=== PATIENT | male | born 2005 | race Caucasian/White ===

== ENCOUNTER 2023-04-04 20:48 | Emergency (ER) | payer OTHER, SELFPAY ==
[2023-04-04] VITALS (19 sets, daily range): BP systolic 112–132; BP diastolic 54–90; PULSE 79–119; RESP 10–18; TEMP 36.4; O2SAT 94–100
[2023-04-04 22:14] LABS: Basophils Percent Auto 0.2 % (0.2-1.2); Eosinophils Absolute Auto 0.1 K/mm3 (0-0.3); Eosinophils Percent Auto 0.5 % (0-4.4); Hemoglobin 14.3 g/dL (14.0-18.0); Immature Granulocyte Absolute 0.02 K/mm3 (0.00-0.031); Immature Granulocyte Percent A 0.2 % (0-0.5); Lymphocytes Absolute Auto 0.76 K/mm3 (0.9-3.2); Lymphocytes Percent Auto 6.8 % (18.3-44.2); Mean Corpuscular Hemoglobin 30.8 pg (26-34); Mean Corpuscular Volume 90.3 fl (80-100); Mean Platelet Volume 10.4 fl (7.4-10.4); Monocytes Absolute Auto 0.4 K/mm3 (0.1-0.6); Monocytes Percent Auto 3.3 % (2.6-8.5); Platelet Count Result 172 k/mm3 (150-375); Red Blood Count 4.65 M/mm3 (4.6-6.20); Red Cell Distribution Width 11.7 % (11.5-14.5); White Blood Count 11.2 K/mm3 (4.5-10.0)
[2023-04-04 22:24] LABS: Alanine Aminotransferase 18 U/L (6-50); Albumin Level 4.7 g/dL (3.7-5.6); Alkaline Phosphatase 97 U/L (58-237); Anion Gap 10 mmol/L (8-16); Aspartate Amino Transferase 30 U/L (17-59); Bilirubin,Total 0.8 mg/dL (0.2-1.3); Blood Urea Nitrogen 15 mg/dL (8-21); Calcium 9.1 mg/dL (8.9-10.7); Carbon Dioxide 29 mmol/L (22-30); Chloride 98 mmol/L (98-107); Estimated CRCL calculation 94 ml/min; Estimated Glomerular Filt Rate > 60; Glucose 102 mg/dL (65-110); Potassium 4.2 mmol/L (3.4-5.0); Sodium 137 mmol/L (134-143)
[2023-04-05] VITALS (23 sets, daily range): BP systolic 107–122; BP diastolic 59–79; PULSE 62–99; O2SAT 98–100
--- NOTE | 2023-04-05 00:18 | ECG_ITS ---
Measurements Intervals [place] Rate: 70 P: 75 [place]: 134 QRS: 80 QRSD: 104 T: 62 QT: 363 QTc: 392 Interpretive Statements SINUS RHYTHM POSSIBLE RIGHT VENTRICULAR CONDUCTION DELAY [RSR (QR) IN V1/V2] EARLY REPOLARIZATION [ST ELEVATION WITH NORMALLY INFLECTED T WAVE] NO PREVIOUS ECG AVAILABLE FOR COMPARISON Electronically Signed On 04-05-2023 13:21:31 CDT by Chuyita Posey M.D.
[2023-04-05] MEDS: SODIUM CHLORIDE 0.9% IV 1,000 ML 999 ML IV CONT ×2 (00:28)
[2023-04-05 00:48] LABS: Appearance Urine Clear (Clear); Bacteria Urine None Seen /hpf; Bilirubin Urine Negative (Negative); Blood Urine Negative (Negative); Color Urine Yellow (Yellow); Glucose Urine UA Negative (Negative); Ketones Urine Negative (Negative); Leukocyte Esterase Ur Trace LEU/UL (Negative); Nitrate Urine Negative (Negative); Non Pathogenic Casts 0-2; Protein Urine Negative (Negative); RBC Urine 0-2 /hpf (0-2); Specific Grav Ur 1.007 (1.001-1.035); Squamous Epithelial Cell Urine None seen /hpf (Few); Urobilinogen Urine 0.2 mg/dL (<2.0); WBC Urine 0-5 /hpf; pH Urine 6.5 (5.0-9.0)
--- NOTE | 2023-04-05 00:53 | ED.SYNCOPE ---
HPI - Syncope General Chief Complaint: Syncope <CABRERA Rivero Last Filed: 04/05/23 03:19> Stated Complaint: syncopal episode during soccer game <CABRERA Rivero Last Filed: 04/05/23 03:19> Time Seen by Provider: 04/04/23 22:47 <CABRERA Rivero Last Filed: 04/05/23 03:19> Source: patient <CABRERA Rivero Last Filed: 04/05/23 03:19> Mode of arrival: ambulatory <CABRERA Rivero Last Filed: 04/05/23 03:19> Limitations: no limitations <CABRERA Rivero Last Filed: 04/05/23 03:19> History of Present Illness HPI narrative: Patient is a 17-year-old male who presents ED with report of syncope. Patient reports he was at a sporting event today and stood for the [place] and felt suddenly lightheaded, had narrowing vision, and felt abdominal discomfort. He felt the urge to have a bowel movement at that time and went to the bathroom. When he sat down to have a bowel movement, he had a syncopal episode. He did not fall off the toilet or hit his head. When he came to, he still felt lightheaded, but did not have any further pain. Patient was able to walk immediately afterwards on his own. 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 Patient states he feels fine currently. Denies any further dizziness, lightheadedness, vision changes, chest pain, shortness of breath, nausea, vomiting, abdominal pain. Denies any rectal bleeding or melena. <CABRERA Rivero Last Filed: 04/05/23 03:19> Related Data Allergies/Adverse Reactions: Allergies Allergy/AdvReac Type Severity Reaction Status Date / Time No Known Allergies Allergy Unverified 06/04/18 14:16 <CABRERA Rivero Last Filed: 04/05/23 03:19> Review of Systems Review of Systems: CONSTITUTIONAL: Denies fever, chills, or sweats. EYES: See HPI. CARDIOVASCULAR: Denies chest pain, palpitations, or edema. RESPIRATORY: Denies cough or dyspnea. GASTROINTESTINAL: See HPI. GENITOURINARY: Denies dysuria or hematuria. NEUROLOGIC: See HPI. <Coleen Tierney PA-C - Last Filed: 04/05/23 03:19> All systems reviewed & are unremarkable except as noted in HPI and below <Coleen Tierney PA-C - Last Filed: 04/05/23 03:19> [facility] Past Medical History Medical History: Medical History (Updated 04/06/23 @ 00:00 by Aditya Zee) WPW (Dxxre-Ndsssnenk-Pzgpb syndrome) <Coleen Tierney PA-C - Last Filed: 04/05/23 03:19> Surgical History Surgical History: Surgical History (Updated 04/05/23 @ 01:16 by Coleen Tierney PA-C) H/O cardiac radiofrequency ablation <Coleen Tierney PA-C - Last Filed: 04/05/23 03:19> Exam Narrative: GENERAL: Well appearing, thin, non-toxic, in no acute distress. HEAD: Normocephalic, atraumatic. EYES: PERRLA/EOMI, conjunctiva clear. NECK: Supple. No adenopathy, no masses. No meningeal signs. RESPIRATORY: Airway patent, respirations nonlabored. Clear to auscultation bilaterally, no rales, rhonchi, wheezing. CARDIOVASCULAR: Regular rate and rhythm without murmurs, rubs, or gallops. Radial pulses 2+ and equal bilaterally. ABDOMINAL: Soft, nontender, nondistended, no hepatosplenomegaly. Normoactive BS. MUSCULOSKELETAL: Moves all extremities. Strength/ROM intact without gross deformities. SKIN: Warm, dry, normal color. No rashes. NEURO: A&O X3. Speech clear. Cranial nerves II-XII grossly intact. Steady gait. No ataxic movements. No focal deficits. Equal strength in upper and lower extremities bilaterally. 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 PSYCHIATRIC: Appropriate mood and affect. Normal interaction. <Coleen Tierney PA-C - Last Filed: 04/05/23 03:19> Course [employer]IPPER/PA Physician Supervision This is a was performed by both a physician and a
[2023-04-05 01:02] LABS: Add Urine Microscopic? YES
[2023-04-05 01:09] LABS: Troponin I < 0.012 ng/mL (0.000-0.034)
== END 2023-04-05 02:39 | disposition home or self-care (01) ==
PROVIDERS: Emergency Medicine; Emergency Provider Physician Assistant; PCP Pediatrics
DX: I95.1 Orthostatic hypotension (principal); I45.6 Pre-excitation syndrome; R94.31 Abnormal electrocardiogram [ECG] [EKG]
CPT/HCPCS: 36415; 80053; 81001; 83735; 84484; 85025; 93005; 96360; 96361; 99284; J7030